=== PATIENT | male | born 1955 ===

== ENCOUNTER 2023-05-30 18:02 | Outpatient (REF) | payer MEDICARE, MEDICAID, SELFPAY ==
[2023-05-30 15:47] LABS: HCT 38.3 % (40.0-50.0); HGB 12.2 g/dL (13.5-17.5); MCH 28.7 pg (27.0-33.0); MCHC 31.9 % (32.0-36.0); MCV 90 fL (80-95); MPV 11.1 fL (8.0-11.0); Platelet Count 261 10^3/uL (130-400); RBC 4.25 10^6/uL (4.36-5.78); RDW-SD 46.7 fL
[2023-05-30 15:57] LABS: PHENYTOIN (DILANTIN) < 0.5 ug/mL (10.0-20.0)
[2023-05-30 16:15] LABS: ALT 17 U/L (16-63); AST 21 U/L (15-37); Alkaline Phosphatase 93 U/L (46-116); Anion Gap 8.6 mmol/L (3-11); BUN 14 mg/dL (7-18); Bilirubin, Total 0.3 mg/dL (0.2-1.0); CO2 28.4 mmol/L (21.0-32.0); CREATININE 0.4 mg/dL (0.70-1.30); Calcium 8.6 mg/dL (8.5-10.1); Chloride 108 mmol/L (98-107); Creatine Kinase 165 U/L (39-308); Estimated GFR 118.84 (mL/min/1.73m2); Glucose 95 mg/dL (74-106); Potassium 4.1 mmol/L (3.5-5.1); Sodium 145 mmol/L (136-145)
[2023-05-30 16:46] LABS: Calculated LDL 94 mg/dL (<100); Cholesterol 159 mg/dL (<200); HDL Cholesterol 51 mg/dL (40-60); Triglyceride 74 mg/dL (<150)
[2023-06-01 10:54] LABS: Levetiracetam 18.8 mcg/mL
== END 2023-05-30 18:03 | disposition home or self-care (01) ==
LOC: LBN 18:02
PROVIDERS: Visit Provider Family Medicine
DX: E78.5 Hyperlipidemia, unspecified (principal); G40.909 Epilepsy, unspecified, not intractable, without status epilepticus; Z51.81 Encounter for therapeutic drug level monitoring; Z79.899 Other long term (current) drug therapy
CPT/HCPCS: 80053; 80061; 82550; 85027; 80177; 80185